=== PATIENT | male | born 2000 | race Caucasian/White ===

== ENCOUNTER 2019-02-23 18:34 | Emergency (ER) | payer OTHER ==
[2019-02-23 18:48] VITALS: BP 128/81; PULSE 82; TEMP 98.6; BMI 25.0
--- NOTE | 2019-02-23 18:48 | PDOC ---
Rapid Medical Evaluation Chief Complaint: Foreign Body (FB) Medical Evaluation: Allergies Allergy/AdvReac Type Severity Reaction Status Date / Time No Known Allergies Allergy Verified 02/23/19 18:41 Vital Signs Temp Pulse Resp BP Pulse Ox 98.6 F 82 18 128/81 99 02/23/19 18:37 02/23/19 18:37 02/23/19 18:37 02/23/19 18:37 02/23/19 18:37 02/23/19 18:47 I have performed a brief in-person evaluation of this patient. The patient presents with a chief complaint of: stepped on glass with R foot , per pt UTD with tetatnus Pertinent physical exam findings: lac to R foot I have ordered the following: nothing The patient will proceed to the ED for further evaluation. Discharge Disposition - Diagnosis Laceration - Discharge Dispostion Condition at time of disposition: Stable - Referrals - Patient Instructions - Post Discharge Activity
[2019-02-23] MEDS ORDERED: BACITRACIN 0.9 GM PACKET ONE (19:19)
--- NOTE | 2019-02-23 19:27 | PDOC ---
History of Present Illness - General Chief Complaint: Foreign Body (FB) Stated Complaint: WOUND TO RT FOOT Time Seen by Provider: 02/23/19 18:47 History Source: Patient Exam Limitations: No Limitations Past History - Past Medical History Allergies/Adverse Reactions: Allergies Allergy/AdvReac Type Severity Reaction Status Date / Time No Known Allergies Allergy Verified 02/23/19 18:41 Home Medications: Ambulatory Orders NK [No Known Home Medication] 02/23/19 - Psycho Social/Smoking Cessation Hx Smoking History: Never smoked Have you smoked in the past 12 months: No Information on smoking cessation initiated: No Hx Alcohol Use: No Drug/Substance Use Hx: No *Physical Exam - Vital Signs Last Vital Signs Temp Pulse Resp BP Pulse Ox 98.6 F 82 18 128/81 99 02/23/19 18:37 02/23/19 18:37 02/23/19 18:37 02/23/19 18:37 02/23/19 18:37 - Physical Exam General Appearance: No: Apparent Distress Extremity: positive: Other (superficial 1 cm abrasion to plantar aspect of R foot, no active bleeding, no obvious FB visible) Integumentary: negative: Erythema, Swelling, Ecchymosis, Bruising Neurologic: positive: Alert ED Treatment Course - RADIOLOGY Radiology Studies Ordered: Category Date Time Status FOOT-RIGHT [RAD] Stat Radiology 02/23/19 18:48 Taken Medical Decision Making - Medical Decision Making 18 y/o M with no sig pmh presents with cut to bottom of R foot from today. States a glass broke and he accidentally stepped on the glass. Is UTD on tetanus. Denies fever. R foot xray shows no FB Superficial abrasion - covered with bacitracin; no need for stitches stable for dc 02/23/19 19:24 Discharge - Discharge Information Problems reviewed: Yes Clinical Impression/Diagnosis: Cut of foot Condition: Stable Disposition: HOME - Admission No - Additional Discharge Information Prescription Drug Monitoring Program (I-STOP) results: I-STOP not reviewed - Follow up/Referral - Patient Discharge Instructions Patient Printed Discharge Instructions: DI for Abrasion Additional Instructions: Thank you for choosing [facility]. It was a pleasure taking care of you. Your xray showed no foreign body You may apply bacitracin or neosporin over site. Return to the Emergency Department if your symptoms worsen or persist, you have fever, redness, pustular drainage, streaking or other concerning symptoms. - Post Discharge Activity
== END 2019-02-23 19:37 | disposition home or self-care (01) ==
LOC: JERFT 18:34
DX: S91.311A Laceration without foreign body, right foot, initial encounter (principal); W25.XXXA Contact with sharp glass, initial encounter; W22.8XXA Striking against or struck by other objects, initial encounter; Y93.89 Activity, other specified; Y92.89 Other specified places as the place of occurrence of the external cause; Y99.8 Other external cause status
CPT/HCPCS: 73630-TC-RT-FY; 99281-25

== ENCOUNTER 2020-01-05 04:33 | Emergency (ER) | payer OTHER ==
--- NOTE | 2020-01-05 04:45 | PDOC ---
History of Present Illness - General Stated Complaint: PAIN,RT WRIST - History of Present Illness Initial Comments: The pt is a 19M w/ no reported PMH who presents for evaluation of right wrist pain that started after a basketball game. The pt does not recall any discrete injury. He denies any changes in strength or sensation. The pain is right wrist/distal forearm, achy, intermittent, non-radiating, and not exacerbated or alleviated by anything he can identify. Pt denies previous injury or surgery to the RUE. He has not tried taking anything for the pain. PMH: Denies PSH: Denies Meds: Denies SH: Social EtOH, denies tobacco or illicit drug use 01/05/20 05:00 Past History - Medical History Allergies/Adverse Reactions: Allergies Allergy/AdvReac Type Severity Reaction Status Date / Time No Known Allergies Allergy Verified 01/05/20 04:44 Home Medications: Ambulatory Orders NK [No Known Home Medication] 02/23/19 - Psycho-Social/Smoking History Smoking History: Never smoked Have you smoked in the past 12 months: No Review of Systems - Review of Systems Able to Perform ROS?: Yes Comments:: GENERAL/CONSTITUTIONAL: No fever or chills. No weakness HEAD, EYES, EARS, NOSE AND THROAT: No change in vision. No change in hearing. No sore throat CARDIOVASCULAR: No chest pain or shortness of breath RESPIRATORY: Denies cough, hemoptysis GASTROINTESTINAL: No nausea, vomiting, diarrhea or constipation GENITOURINARY: No dysuria, frequency, or change in urination MUSCULOSKELETAL: per HPI SKIN: No rash NEUROLOGIC: No headache, vertigo, loss of consciousness, or change in strength/sensation ENDOCRINE: No increased thirst. No abnormal weight change HEMATOLOGIC/LYMPHATIC: No anemia, easy bleeding, or history of blood clots ALLERGIC/IMMUNOLOGIC: No hives or skin allergy 01/05/20 04:44 Is the patient limited Urdu proficient: No *Physical Exam - Vital Signs Initial Vital Signs Temp Pulse Resp BP Pulse Ox 98.2 F 67 20 131/78 100 01/05/20 04:45 01/05/20 04:45 01/05/20 04:45 01/05/20 04:45 01/05/20 04:45 01/05/20 05:05 - Physical Exam GENERAL: Awake, alert, and oriented to person/place/time, in no acute distress HEAD: No signs of trauma, normocephalic, atraumatic EYES: PERRLA, EOMI, sclera anicteric, conjunctiva clear ENT: Hearing grossly normal, nares patent, oropharynx clear without exudates. Moist mucosa LUNGS: No distress, speaks in full sentences, clear to auscultation bilaterally HEART: Regular rate and rhythm, normal S1 and S2, no murmurs appreciated, peripheral pulses normal and equal bilaterally ABDOMEN: Soft, nontender, normoactive bowel sounds. No guarding, no rebound NEUROLOGICAL: Cranial nerves II through XII grossly intact. Normal speech, normal gait, no focal sensorimotor deficits SKIN: Warm, Dry RUE: Inspection: No erythema or ecchymosis. No tenderness, no obvious abnormalities, no open wounds. Compartments soft and compressible, no pain to passive stretch, no snuff box tenderness; neg phalen test and tinel test Sensation: sensation present to light touch m/r/u n Motor: intact AIN/PIN/Ulnar in hand; 5/5 Wrist flex/ext; 5/5 Elbow flex/ext; 5/5 Shoulder ABd,Flex Vascular: 2+ radial pulse palpated, BCR all fingers <2 sec. EXTREMITIES: Remainder of extremities with FROM and strength 5/5 throughout 01/05/20 04:44 Medical Decision Making - Medical Decision Making The pt is a 19M w/ no reported PMH who presents for evaluation of right distal forearm/wrist pain that started after a basketball game. Consider muscular strain, not likely carpel tunnel syndrome, not likely fx/dislocation (no bony or snuff box TTP) Will give Tylenol for pain Plan for D/C w/ PCP f/u Discharge instructions and return precautions given Patient in agreement and verbalized understanding Dispo: Home 01/05/20 05:07 Discharge - Discharge Information Problems reviewed: Yes Clinical Impression/Diagnosis: Right wrist pain Condition: Stable Disposition: HOME - Admission No - Follow up/Referral - Patient Discharge Instructions Patient Printed Discharge Instructions: DI for Musculoskeletal Pain Additional Instructions: You may use over the counter medications as needed for pain at home. 650-1000mg acetaminophen (Tylenol) or 600mg ibuprofen (Motrin or Advil) can be used every 6-8 hours. If needed for continued pain, these medications may be alternated every 3-4 hours. For example, if you take ibuprofen at 9am, you may take acetaminophen at noon, ibuprofen at 3pm, etc. - You may use over the counter medications as needed for pain at home. 650- 1000mg acetaminophen (Tylenol) or 600mg ibuprofen (Motrin or Advil) can be used every 6-8 hours. If needed for continued pain, these medications may be alternated every 3-4 hours. For example, if you take ibuprofen at 9am, you may take acetaminophen at noon, ibuprofen at 3pm, etc. - It is strongly recommended that you take ibuprofen with food to help prevent stomach irritation. If you are taking it for more than a day or two, you may consider taking an acid medication such as Pepcid, available over the counter, to protect your stomach. This should be taken first thing in the morning 30-60 minutes before any food or medications. - Try using an ice pack for 20 minutes every hour or a heating pad for additional pain control. These should NOT be used over the lidocaine patch, but you may place them over the areas of pain while the patch is off. - Do not stop moving around. As much as you can tolerate, continue to do light exercise and stretching exercises. Increase your activity level as much as you can tolerate daily. - If your pain does not improve over the next week, you should see your primary care provider for follow up. - Seek immediate medical care if you have significant worsening of your symptoms, dizziness, headache, unable to walk, nausea, change of vision. - Post Discharge Activity Work/Back to School Note: Back to Work
[2020-01-05 04:47] VITALS: BP 131/78; PULSE 67; TEMP 98.2; BMI 26.4
[2020-01-05] MEDS ORDERED: ACETAMINOPHEN 325 MG TABLET (FP) ONE (04:56)
[2020-01-05] MEDS ORDERED: ACETAMINOPHEN 325 MG TABLET (FP) PO ONE (04:56)
--- NOTE | 2020-01-05 05:05 | PDOC ---
Attending Attestation - Resident Resident Name: Severo Salazar - ED Attending Attestation I have performed the following: I have examined & evaluated the patient, The case was reviewed & discussed with the resident, I agree w/resident's findings & plan, Exceptions are as noted - HPI HPI: 01/05/20 06:52 See resident HPI - Physicial Exam PE: 01/05/20 06:52 Agree with documented exam - Medical Decision Making 01/05/20 06:53 Likely msk injury, less concern for fx, dislocation, sprain analgesia dc with return instructions Discharge - Discharge Information Problems reviewed: Yes Clinical Impression/Diagnosis: Right wrist pain Condition: Stable Disposition: HOME - Follow up/Referral - Patient Discharge Instructions Patient Printed Discharge Instructions: DI for Musculoskeletal Pain Additional Instructions: You may use over the counter medications as needed for pain at home. 650-1000mg acetaminophen (Tylenol) or 600mg ibuprofen (Motrin or Advil) can be used every 6-8 hours. If needed for continued pain, these medications may be alternated every 3-4 hours. For example, if you take ibuprofen at 9am, you may take acetaminophen at noon, ibuprofen at 3pm, etc. - You may use over the counter medications as needed for pain at home. 650- 1000mg acetaminophen (Tylenol) or 600mg ibuprofen (Motrin or Advil) can be used every 6-8 hours. If needed for continued pain, these medications may be alternated every 3-4 hours. For example, if you take ibuprofen at 9am, you may take acetaminophen at noon, ibuprofen at 3pm, etc. - It is strongly recommended that you take ibuprofen with food to help prevent stomach irritation. If you are taking it for more than a day or two, you may consider taking an acid medication such as Pepcid, available over the counter, to protect your stomach. This should be taken first thing in the morning 30-60 minutes before any food or medications. - Try using an ice pack for 20 minutes every hour or a heating pad for additional pain control. These should NOT be used over the lidocaine patch, but you may place them over the areas of pain while the patch is off. - Do not stop moving around. As much as you can tolerate, continue to do light exercise and stretching exercises. Increase your activity level as much as you can tolerate daily. - If your pain does not improve over the next week, you should see your primary care provider for follow up. - Seek immediate medical care if you have significant worsening of your symptoms, dizziness, headache, unable to walk, nausea, change of vision. - Post Discharge Activity Work/Back to School Note: Back to Work
== END 2020-01-05 05:07 | disposition home or self-care (01) ==
LOC: JER 04:33
DX: M25.531 Pain in right wrist (principal)
CPT/HCPCS: 99283-25

== ENCOUNTER 2021-11-08 03:56 | Emergency (ER) | payer OTHER ==
[2021-11-08 04:36] VITALS: BP 128/76; PULSE 88; TEMP 97.6; BMI 259.0
[2021-11-08] MEDS ORDERED: FLUORESCEIN NA 1 EA STRIP OD ONE (05:13)
[2021-11-08] MEDS ORDERED: FLUORESCEIN NA 1 EA STRIP ONE (05:15)
[2021-11-08] MEDS ORDERED: TETRACAINE 0.5% HCL 0.6ML DROPPER.BOTTLE OP ONE (05:15)
[2021-11-08] MEDS ORDERED: TETRACAINE 0.5% OPHTH SOLN 2 ML BOTTLE ONE (05:15)
[2021-11-08] MEDS ORDERED: IBUPROFEN 400 MG TABLET (FP) PO ONE (06:37)
== END 2021-11-08 07:20 | disposition home or self-care (01) ==
LOC: JER 03:56
DX: S05.92XA Unspecified injury of left eye and orbit, initial encounter (principal); W34.011A Accidental discharge of paintball gun, initial encounter
CPT/HCPCS: 70480-TC; 99284-25

== ENCOUNTER 2022-02-15 18:52 | Emergency (ER) | payer OTHER ==
[2022-02-15 19:08] VITALS: BP 128/71; PULSE 91; RESP 18; TEMP 97; BMI 30.7
[2022-02-15] MEDS ORDERED: IBUPROFEN 600 MG TABLET (FP) PO ONE ×2 (20:19→20:21)
== END 2022-02-15 20:24 | disposition home or self-care (01) ==
LOC: JER 18:52 → JERFT 18:52
DX: S09.90XA Unspecified injury of head, initial encounter (principal); Y00.XXXA Assault by blunt object, initial encounter
CPT/HCPCS: 99283-25